=== PATIENT | female | born 1995 | race Caucasian/White ===

== ENCOUNTER 2025-11-07 10:05 | Emergency (ER) | payer BC, SELFPAY ==
--- NOTE | ~2025-11-07 | XR_ITS ---
CLINICAL HISTORY: flu like symptoms 2 view chest Comparison: None Findings: No consolidation or pneumothorax/pleural effusion. Mild peribronchial wall thickening. Cardiomediastinal silhouette is normal. No mediastinal shift or tracheal deviation. Osseous structures intact. Impression: 1. Mild central bronchial wall thickening. 2. No airspace disease. This document has been electronically signed by: Reilly Jovel MD on 11/07/2025 11:28:50
[2025-11-07 10:10] VITALS: BP 131/76; PULSE 80; RESP 16; TEMP 36.8; O2SAT 98; BMI 35.8
--- OUTSIDE RECORDS SUMMARY | 2025-11-07 10:29 | XMS_ITS | Encounter Summary ---
Author Organization [facility] Address [address] [place] [address] Care Team Providers Care Termite Technician Name Role Phone Hoa Garcia MD Primary Care Provider Encounter Details Date Type Department Care Team (Late st Contact Info) Description 10/23/2021 Abstract [facility] [address] [phone] Hoa Garcia MD [address] [place] [phone] Social History Tobacco Use Types Packs/Day Years Used Date Smoking Tobacco: Never Smokeless Tobacco: Never Alcohol Use Standard Drinks/Week Comments Yes 0 (1 standard drink = 0.6 oz pur e alcohol) Rarely PHQ-2 Answer Date Recorded PHQ-2 Total Score 0 04/13/2021 Comments No Sex and Gender Information Value Date Recorded Sex Assigned at Female 07/11/2021 12:59 PM EDT Legal Sex Female 1:45 PM EDT Gender Identity Female 07/11/2021 12:59 PM EDT Sexual Orientation Straight 07/11/2021 12 :59 PM EDT documented as of this encounter Plan of Treatment Upcoming Encounters Date Type Department Care Team (Late st Contact Info) Description 12/17/2025 4:20 PM EST Office Visit [facility] Family [facility] [address] [place] [address] Hoa Garcia MD [address] [place] [address] documented as of this encounter Visit Diagnoses Not on filedocumented in this encounter Additional Health Concerns Infection Onset Date Last Indicated Resolved Time R/O COVID-19 01/01/2023 01/01/2023 01/01/2023 5:17 PM EST R/O Influenza 01/01/2023 01/01/2023 01/01/2023 5:1 7 PM EST COVID-19 01/01/2023 01/01/2023 01/11/2023 7:18 PM EST R/O Influenza 10/30/2024 10/30/2024 10/30/2024 9:5 3 PM EST R/O RSV 10/30/2024 10/30/2024 10/30/2024 9:53 PM EST R/O Respiratory Virus 10/30/2024 10/30/20242023 9:53 PM EST R/O COVID-19 10/30/2024 10/30/2024 10/30/2024 9:53 PM EST Assessment Noted Time PHQ-9 Depression Total Score: 0 04/13/20 9:30 AM EDT documented as of this encounter Care Teams Termite Technician Relationship Specialty Start Date End Date Hoa Garcia MD PCP - General 11/05/14 documented as of this encounter
--- OUTSIDE RECORDS SUMMARY | 2025-11-07 10:29 | XMS_ITS | Encounter Summary ---
Author Organization [facility] Address [address] [place] [address] Care Team Providers Care Acid Purifier Name Role Phone Hoa Garcia MD Primary Care Provider Encounter Details Date Type Department Care Team (Late st Contact Info) Description 09/28/2021 Scanned Document [facility] [address] [address] oHa Garcia MD [address] [place] [phone] Social History Tobacco Use Types Packs/Day [...] 12/17/2025 4:20 PM EST Office Visit [facility] [address] [place] [address] Hoa Garcia MD [address] [place] [address] documented as of this encounter Visit Diagnoses [...] documented as of this encounter Care Teams Acid Purifier Relationship Specialty Start Date End Date Hoa Garcia MD PCP - General 11/05/14 documented as of this encounter
--- OUTSIDE RECORDS SUMMARY | 2025-11-07 10:29 | XMS_ITS | Encounter Summary ---
Author Organization [facility] Address [address] [place] [address] Care Team Providers Care Fuel System Maintenance Worker Name Role Phone Hoa Garcia MD Primary Care Provider Encounter Details Date Type Department Care Team (Late st Contact Info) Description 03/16/2021 Scanned Document [facility] Internal Medicine [address] [phone] External, Provider Social History Tobacco Use Types Packs/Day Years Used Date Smoking Tobacco: Never Smokeless Tobacco: Never Alcohol Use Standard Drinks/Week Comments Yes 0 (1 standard drink = 0.6 oz pur e alcohol) Rarely PHQ-2 Answer Date Recorded PHQ-2 Score 0 05/23/2019 Comments No Sex and Gender Information Value [...] 12/17/2025 4:20 PM EST Office Visit [facility] [address] [place] [address] Hoa Garcia MD [address] [place] [address] documented as of this encounter Procedures Procedure Name Priority Date/Time Associated Diagnosis Comments HM PAP SMEAR Routine 01/13/2020 documented in this encounter Results * HM PAP SMEAR (01/13/2020) us Provider External HEALTH MAINTENANCE Final Resul t documented in this encounter Visit Diagnoses Not on filedocumented [...] Noted Time PHQ-9 Depression Total Score: 0 10/16/20 18 11:34 AM EST documented as of this encounter Care Teams Fuel System Maintenance Worker Relationship Specialty Start Date End Date Hoa Garcia MD PCP - General 11/05/14 documented as of this encounter
--- OUTSIDE RECORDS SUMMARY | 2025-11-07 10:29 | XMS_ITS | Encounter Summary ---
Author Organization [facility] Address [address] [place] [address] Care Team Providers Care Integrated Program Teacher Name Role Phone Hoa Garcia MD Primary Care Provider Reason for Visit * Reason Comments Medication Refill Encounter Details Date Type Department Care Team (Late st Contact Info) Description 03/22/2022 Refill [facility] [address] [phone] Hoa Garcia MD [address] [place] [phone] Medication Refill Social History Tobacco Use Types Packs/Day Years [...] 12/17/2025 4:20 PM EST Office Visit [facility] [address] [place] [address] Hoa Garcia MD [address] [place] [address] documented as of this encounter Visit Diagnoses Diagnosis Essential hypertension Unspecified essential hypertension documented in this encounter Additional Health Concerns Infection [...] Time PHQ-9 Depression Total Score: 0 04/13/20 21 9:30 AM EDT documented as of this encounter Care Teams Integrated Program Teacher Relationship Specialty Start Date End Date Hoa Garcia MD PCP - General 11/05/14 documented as of this encounter
--- OUTSIDE RECORDS SUMMARY | 2025-11-07 10:29 | XMS_ITS | Encounter Summary ---
Author Organization [facility] Address [address] [place] [address] Care Team Providers Care Door Repairman Name Role Phone Hoa Garcia MD Primary Care Provider Encounter Details Date Type Department Care Team (Late st Contact Info) Description 11/02/2021 Abstract [facility] [address] [phone] Hoa Garcia MD [address] [place] [phone] Social History Tobacco Use Types Packs/Day [...] PM EST Office Visit [facility] Family Medicine [facility] [address] [place] [address] Hoa Garcia MD [address] [place] [address] documented as of this encounter Visit Diagnoses [...] documented as of this encounter Care Teams Door Repairman Relationship Specialty Start Date End Date Hoa Garcia MD PCP - General 11/05/14 documented as of this encounter
--- OUTSIDE RECORDS SUMMARY | 2025-11-07 10:29 | XMS_ITS | Encounter Summary ---
Author Organization [facility] Address [address] [place] [address] Care Team Providers Care Warehouse Engineer Name Role Phone Hoa Garcia MD Primary Care Provider Encounter Details Date Type Department Care Team (Late st Contact Info) Description 01/26/2022 Abstract [facility] [address] [phone] Hoa Garcia MD [address] [place] [phone] Social History Tobacco Use Types Packs/Day [...] 12/17/2025 4:20 PM EST Office Visit [facility] [address] [place] [address] Hoa Garcia MD [address] [place] [address] documented as of this encounter Visit Diagnoses [...] documented as of this encounter Care Teams Warehouse Engineer Relationship Specialty Start Date End Date Hoa Garcia MD PCP - General 11/05/14 documented as of this encounter
--- OUTSIDE RECORDS SUMMARY | 2025-11-07 10:29 | XMS_ITS | Encounter Summary ---
Author Organization [facility] Address [address] [place] [address] Care Team Providers Care Cap Inspector Name Role Phone Hoa Garcia MD Primary Care Provider Encounter Details Date Type Department Care Team (Late st Contact Info) Description 11/02/2021 Abstract [facility] [address] [phone] Hoa Garcia MD [address] [place] [phone] Social History Tobacco Use Types Packs/Day [...] PM EST Office Visit [facility] [address] [place] [address] Hoa Garcia MD [address] [place] [address] documented as of this encounter Visit Diagnoses [...] documented as of this encounter Care Teams Cap Inspector Relationship Specialty Start Date End Date Hoa Garcia MD PCP - General 11/05/14 documented as of this encounter
--- OUTSIDE RECORDS SUMMARY | 2025-11-07 10:29 | XMS_ITS | Encounter Summary ---
Author Organization [facility] Address [address] [place] [address] Care Team Providers Care Professor Of Psychiatry Name Role Phone Hoa Garcia MD Primary Care Provider Encounter Details Date Type Department Care Team (Late st Contact Info) Description 07/18/2021 Scanned Document [facility] [address] [phone] External, Provider Social History Tobacco Use Types [...] EST Office Visit [facility] [address] [place] [address] Hoa Garcia MD [address] [place] [address] documented as of this encounter Procedures Procedure Name Priority Date/Time Associated Diagnosis Comments HM PAP SMEAR Routine 03/14/2021 HM PAP SMEAR Routine 03/08/2021 documented in this encounter Results * HM PAP SMEAR (03/14/2021) us Provider External HEALTH MAINTENANCE Final Resul t * HM PAP SMEAR (03/08/2021) us Provider External HEALTH MAINTENANCE Final Resul [...] documented as of this encounter Care Teams Professor Of Psychiatry Relationship Specialty Start Date End Date Hoa Garcia MD PCP - General 11/05/14 documented as of this encounter
--- OUTSIDE RECORDS SUMMARY | 2025-11-07 10:29 | XMS_ITS | Encounter Summary ---
Author Organization [facility] Address [address] [place] [address] Care Team Providers Care Commercial Drone Pilot Name Role Phone Hoa Garcia MD Primary Care Provider Encounter Details Date Type Department Care Team (Latest Contact Info) Description 09/08/2020 Transcribed Orders [facility] [address] [place] [address] Hoa Garcia MD [facility] [place] [address] Generalized anxiety disorder (Primary Dx) Social History Tobacco Use Types Packs/Day Years [...] Description 12/17/2025 4:20 PM EST [facility] [address] [place] [address] Hoa Garcia MD [address] [place] [phone] documented as of this encounter Results * SARS CoV-2 (COVID-19) RNA - [facility] (Patient Scheduled for Surgery/Procedure) (09/08/2020 2:24 PM EDT) SARS-CoV-2 RNA (COVID-19) Not Detected Not Detected 09/09/2020 11:59 AM EDT [facility] DEPARTMENT OF LABORATORY MEDICINE Comment: Negative results do not preclude COVID-19 and should not be the sole basis for patient management decisions. Clinical disease and risk factors should also be considered. This real-time RT-PCR assay was developed by [employer] and targets three regions of the SARS-CoV-2 genome: orf1ab, spike (S) gene, nucleocapsid (N) gene. It has been validated for clinical use by the [facility] Virology Laboratory. [employer] COVID-19 Combo Kit is for use only under Emergency Use Authorization (EUA). Testing is limited to laboratories certified under the Clinical Laboratory Improvement Amendments of 1988 (CLIA), 42 U.S.C. 263a, to perform high complexity tests. Note that falsely negative results can be due to poor sample quality, suboptimal sample type, low viral load, and viral genome variability. Fact Sheet for Healthcare Providers: https://www.fda.gov/media/539842/download Fact Sheet for Patients: https://www.fda.gov/media/384135/download Test performance has not been evaluated in asymptomatic patients. Test ordering and result interpretation is at the discretion of the ordering provider. Viral NASOPHARYNGEAL STRUCTURE / Unknown Collection / Unknown 09/08/2020 2:24 PM EDT 09/08/2020 2:24 PM EDT us Hoa Garcia MD MICROBIOLOGY - GENERAL ORDERABLES Final Result [facility] DEPARTMENT OF LABORATORY MEDICINE [address] [place] [address] documented in this encounter Visit Diagnoses Diagnosis Generalized anxiety disorder- Primary documented in this encounter Additional Health Concerns Infection Onset Date Last Indicated Resolved Time R/O COVID-19 09/08/2020 09/08/2020 09/18/2020 7:19 PM EST R/O COVID-19 09/19/2020 09/19/2020 09/20/2020 11:3 5 AM EST R/O COVID-19 01/04/2021 01/04/2021 01/14/2021 7:20 PM EST R/O COVID-19 01/01/2023 01/01/2023 01/01/2023 5:17 PM [...] documented as of this encounter Care Teams Commercial Drone Pilot Relationship Specialty Start Date End Date Hoa Garcia MD PCP - General 11/05/14 documented as of this encounter
--- OUTSIDE RECORDS SUMMARY | 2025-11-07 10:29 | XMS_ITS | Encounter Summary ---
Author Organization [facility] Address [address] [place] [address] Care Team Providers Care Mottler Machine Feeder Name Role Phone Hoa Garcia MD Primary Care Provider Encounter Details Date Type Department Care Team (Late st Contact Info) Description 05/06/2018 Scanned Document [facility] [address] [place] [address] [address] [place], [place] [phone] External, Provider Social History Tobacco Use Types Packs/Day Years Used Date Smoking Tobacco: Never Smokeless Tobacco: Never Alcohol Use Standard Drinks/Week Comments Yes 0 (1 standard drink = 0.6 oz pur e alcohol) Rarely Comments No Sex and Gender Information Value [...] 12/17/2025 4:20 PM EST Office Visit [facility] Family [facility] [address] [place], [place] [phone] Hoa Garcia MD [address] [place] [phone] documented as of this encounter Procedures Procedure Name Priority Date/Time Associated Diagnosis Comments LAB SCAN Routine 02/17/2018 documented in this encounter Results * Lab Scan (02/17/2018) Blood specimen (specimen) us Provider External LAB BLOOD ORDERABLES Final Res ult documented in this encounter Visit Diagnoses Not [...] Noted Time PHQ-9 Depression Total Score: 0 07/30/20 17 3:52 PM EDT documented as of this encounter Care Teams Mottler Machine Feeder Relationship Specialty Start Date End Date Hoa Garcia MD PCP - General 11/05/14 documented as of this encounter
--- OUTSIDE RECORDS SUMMARY | 2025-11-07 10:29 | XMS_ITS | Encounter Summary ---
Author Organization [facility] Address [address] [place] [address] Care Team Providers Care Wrapper Operator Name Role Phone Hoa Garcia MD Primary Care Provider Encounter Details Date Type Department Care Team (Late st Contact Info) Description 07/28/2021 Abstract [facility] [address] [phone] Hoa Garcia MD [address] [place] [phone] Social History Tobacco Use Types Packs/Day [...] 4:20 PM EST Office Visit [facility] Family [facility] [address] [place] [address] Hoa Garcia MD [address] [place] [address] documented as of this encounter Visit Diagnoses [...] documented as of this encounter Care Teams Wrapper Operator Relationship Specialty Start Date End Date Hoa Garcia MD PCP - General 11/05/14 documented as of this encounter
--- OUTSIDE RECORDS SUMMARY | 2025-11-07 10:29 | XMS_ITS | Encounter Summary ---
Author Organization [facility] Address [address] [place] [address] Care Team Providers Care Town Clerk Name Role Phone Hoa Garcia MD Primary Care Provider Encounter Details Date Type Department Care Team (Late st Contact Info) Description 10/18/2021 Abstract [facility] [address] [phone] Hoa Garcia MD [address] [place] [phone] Social History Tobacco Use Types Packs/Day [...] 12/17/2025 4:20 PM EST Office Visit [facility] [address] [place] [address] Hoa Garcia MD [address] [place] [address] documented as of this encounter Visit Diagnoses [...] documented as of this encounter Care Teams Town Clerk Relationship Specialty Start Date End Date Hoa Garcia MD PCP - General 11/05/14 documented as of this encounter
--- OUTSIDE RECORDS SUMMARY | 2025-11-07 10:29 | XMS_ITS | Encounter Summary ---
Author Organization [facility] Address [address] [place] [address] Care Team Providers Care Dental Office Assistant Name Role Phone Hoa Garcia MD Primary Care Provider Encounter Details Date Type Department Care Team (Late st Contact Info) Description 11/01/2021 Abstract [facility] [address] [phone] Hoa Garcia MD [address] [place] [phone] Social History Tobacco Use Types Packs/Day [...] PM EST Office Visit [facility] Family Medicine [facility] [address] [place] [address] Hoa Garcia MD [address] [place] [address] documented as of this encounter Visit Diagnoses [...] documented as of this encounter Care Teams Dental Office Assistant Relationship Specialty Start Date End Date Hoa Garcia MD PCP - General 11/05/14 documented as of this encounter
--- OUTSIDE RECORDS SUMMARY | 2025-11-07 10:29 | XMS_ITS | Encounter Summary ---
Author Organization [facility] Address [address] [place] [address] Care Team Providers Care Transfer Agent Name Role Phone Hoa Garcia MD Primary Care Provider Encounter Details Date Type Department Care Team (Late st Contact Info) Description 10/03/2021 Abstract [facility] [address] [phone] Hoa Garcia MD [address] [place] [phone] Social History Tobacco Use Types Packs/Day [...] 4:20 PM EST Office Visit [facility] [address] [place] [address] Hoa Garcia MD [address] [place] [address] documented as of this encounter Visit Diagnoses [...] documented as of this encounter Care Teams Transfer Agent Relationship Specialty Start Date End Date Hoa Garcia MD PCP - General 11/05/14 documented as of this encounter
--- OUTSIDE RECORDS SUMMARY | 2025-11-07 10:30 | XMS_ITS | Encounter Summary ---
Author Organization [facility] Address [address] [place] [address] Care Team Providers Care Community Organizer Name Role Phone Hoa Garcia MD Primary Care Provider Seda Willingham MD Unavailable [phone] Encounter Details Date Type Department Care Team (Late st Contact Info) Description 11/09/2021 Scanned Document [facility] Bariatric Surgery [address] [place] [phone] Mark Panda MD [address] [place] [address] Social History Tobacco Use Types Packs/Day Years Used Date Smoking Tobacco: Never Smokeless Tobacco: Never Alcohol Use Standard Drinks/Week Comments Yes 0 (1 standard drink = 0.6 oz pur e alcohol) rarely Comments No Sex and Gender Information Value Date Recorded Sex Assigned at Female 09/04/2023 2:54 PM EDT Legal Sex Female 12:36 PM EDT Gender Identity Female 10/17/2021 7:55 AM EST Sexual Orientation Heterosexual (straight) 09/04 3:16 PM EDT COVID-19 Exposure Response Date Recorded In the last month, have you been in contact with someone who was confirmed or suspected to have Coronavirus / COVID-19? No / Unsure 11/01/2021 2:32 PM EST documented as of this encounter Plan of Treatment Not on file documented as of this encounter Visit Diagnoses Not on filedocumented in this encounter Care Teams Community Organizer Relationship Specialty Start Date End Date Hoa Garcia MD PCP - General 08/28/21 Seda Willingham MD [address] [place] [address] Gastroenterology 08/28/21 documented as of this encounter
--- OUTSIDE RECORDS SUMMARY | 2025-11-07 10:30 | XMS_ITS | Encounter Summary ---
Author Organization [facility] Address [address] [place] [address] Care Team Providers Care Event Mgr Name Role Phone Hoa Garcia MD Primary Care Provider Reason for Referral * Imaging (Routine) - Closed Specialty Diagnoses / Procedures Referred By Contac t Referred To Contact Diagnostic Radiology Procedures CT Head wo IV Contrast External, Provider Referral ID Status Reason Start Date Expiration Date Visits Re quested Visits Authorized [id number] Closed 07/24/2016 07/24/2017 1 1 Encounter Details Date Type Department Care Team (Late st Contact Info) Description 07/24/2016 Scanned Document [facility] [address] [place] [address] [address] [place], [place] [phone] External, Provider Social History Tobacco Use Types [...] EST Office Visit [facility] [address] [place] [address] Hoa Garcia MD [address] [place] [phone] documented as of this encounter Procedures Procedure Name Priority Date/Time Associated Diagnosis Comments CT HEAD WO IV CONTRAST Routine 07/08/2016 documented in this encounter Results * CT Head wo IV Contrast (07/08/2016) Anatomical Region Laterality Modality Head, Ortho Head Computed Tomogr aphy us Provider External IMG CT ORDERABLES Final Result documented in this encounter Visit Diagnoses Not [...] Noted Time PHQ-9 Depression Total Score: 0 06/04/20 16 2:06 PM EDT documented as of this encounter Care Teams Event Mgr Relationship Specialty Start Date End Date Hoa Garcia MD PCP - General 11/05/14 documented as of this encounter
--- OUTSIDE RECORDS SUMMARY | 2025-11-07 10:30 | XMS_ITS | Encounter Summary ---
Author Organization [facility] Address [address] [place] [address] Care Team Providers Care Furnace Stock Inspector Name Role Phone Hoa Garcia MD Primary Care Provider Seda Willingham MD Unavailable [phone] Encounter Details Date Type Department Care Team (Late st Contact Info) Description 01/15/2022 Scanned Document [facility] Bariatric Surgery [address] [place] [phone] Mark Panda MD [address] [place] [phone] Social History Tobacco Use Types Packs/Day [...] Orientation Heterosexual (straight) 09/04 3:16 PM EDT documented as of this encounter Plan of Treatment Not on file documented as of this encounter Visit Diagnoses Not on filedocumented in this encounter Care Teams Furnace Stock Inspector Relationship Specialty Start Date End Date Hoa Garcia MD PCP - General 08/28/21 Seda Willingham MD [address] [place] [address] Gastroenterology 08/28/21 documented as of this encounter
--- OUTSIDE RECORDS SUMMARY | 2025-11-07 10:30 | XMS_ITS | Encounter Summary ---
Author Organization [facility] Address [address] [place] [address] Care Team Providers Care Trapper Bird Name Role Phone Hoa Garcia MD Primary Care Provider Seda Willingham MD Unavailable Encounter Details Date Type Department Care Team (Late st Contact Info) Description 02/12/2022 Scanned Document [facility] Bariatric Surgery [address] [place] [phone] Mark Panda MD [address] [place] [address] Social History Tobacco Use Types Packs/Day [...] have Coronavirus / COVID-19? No / Unsure 02/09/2022 12:57 PM EDT documented as of this encounter Plan of Treatment Not on file documented as of this encounter Visit Diagnoses Not on filedocumented in this encounter Care Teams Trapper Bird Relationship Specialty Start Date End Date Hoa Garcia MD PCP - General 08/28/21 Seda Willingham MD [address] [place] [address] Gastroenterology 08/28/21 documented as of this encounter
--- OUTSIDE RECORDS SUMMARY | 2025-11-07 10:30 | XMS_ITS | Encounter Summary ---
Author Organization [facility] Address [address] [place] [address] Care Team Providers Care Carpet Layer Helper Name Role Phone Hoa Garcia MD Primary Care Provider Seda Willingham MD Unavailable [phone] Encounter Details Date Type Department Care Team (Late st Contact Info) Description 10/02/2021 Scanned Document [facility] Bariatric Surgery [address] [place] [phone] Mark Panda MD [address] [place] [address] Social History Tobacco Use Types Packs/Day Years Used Date Smoking Tobacco: Never Smokeless Tobacco: Never Alcohol Use Standard Drinks/Week Comments Yes 0 (1 standard drink = 0.6 oz pur e alcohol) rarely Comments Unknown Sex and Gender Information Value Date Recorded [...] have Coronavirus / COVID-19? No / Unsure 09/18/2021 3:41 PM EDT documented as of this encounter Plan of Treatment Not on file documented as of this encounter Visit Diagnoses Not on filedocumented in this encounter Care Teams Carpet Layer Helper Relationship Specialty Start Date End Date Hoa Garcia MD PCP - General 08/28/21 Seda Willingham MD [address] [place] [address] Gastroenterology 08/28/21 documented as of this encounter
--- OUTSIDE RECORDS SUMMARY | 2025-11-07 10:30 | XMS_ITS | Encounter Summary ---
Author Organization [facility] Address [address] [place] [address] Care Team Providers Care Fabrication Mig Welder Name Role Phone Hoa Garcia MD Primary Care Provider Seda Willingham MD Unavailable [phone] Encounter Details Date Type Department Care Team (Late st Contact Info) Description 02/09/2022 Scanned Document [facility] Bariatric Surgery [address] [place] [phone] Mark Panda MD [address] [place] [address] Social History Tobacco Use Types Packs/Day [...] on filedocumented in this encounter Care Teams Fabrication Mig Welder Relationship Specialty Start Date End Date Hoa Garcia MD PCP - General 08/28/21 Seda Willingham MD [address] [place] [address] Gastroenterology 08/28/21 documented as of this encounter
--- OUTSIDE RECORDS SUMMARY | 2025-11-07 10:30 | XMS_ITS | Encounter Summary ---
Author Organization [facility] Address [address] [place] [address] Care Team Providers Care Line Manager Name Role Phone Hoa Garcia MD Primary Care Provider Encounter Details Date Type Department Care Team (Late st Contact Info) Description 01/21/2017 Scanned Document [facility] [address] [place] [address] [address] [place], [place] [phone] External, Provider Social History Tobacco Use Types [...] 12/17/2025 4:20 PM EST Office Visit [facility] Family Medicine [facility] [address] [place], [place] [phone] Hoa Garcia MD [address] [place] [phone] documented as of this encounter Visit Diagnoses [...] documented as of this encounter Care Teams Line Manager Relationship Specialty Start Date End Date Hoa Garcia MD PCP - General 11/05/14 documented as of this encounter
--- OUTSIDE RECORDS SUMMARY | 2025-11-07 10:30 | XMS_ITS | Encounter Summary ---
Author Organization [facility] Address [address] [place] [address] Care Team Providers Care Patient Care Nursing Assistant Name Role Phone Hoa Garcia MD Primary Care Provider Encounter Details Date Type Department Care Team (Late st Contact Info) Description 01/02/2016 Scanned Document [facility] [address] [place] [address] [address] [place], [place] [phone] External, Provider Social History Tobacco Use Types Packs/Day Years Used Date Smoking Tobacco: Never Smokeless Tobacco: Never Alcohol Use Standard Drinks/Week Comments Yes 0 (1 standard drink = 0.6 oz pur e alcohol) Rarely Comments Unknown Sex and Gender Information Value [...] 12/17/2025 4:20 PM EST Office Visit [facility] Family Medicine [facility] [address] [place], [place] [phone] Hoa Garcia MD [address] [place] [address] documented as of this encounter Procedures Procedure Name Priority Date/Time Associated Diagnosis Comments LAB SCAN Routine 12/31/2015 documented in this encounter Results * Lab Scan (12/31/2015) Blood specimen (specimen) us Provider External LAB BLOOD ORDERABLES Final Res ult [facility] [place], [facility] documented in this encounter Visit Diagnoses Not [...] COVID-19 10/30/2024 10/30/2024 10/30/2024 9:53 PM EST documented as of this encounter Care Teams Patient Care Nursing Assistant Relationship Specialty Start Date End Date Hoa Garcia MD PCP - General 11/05/14 documented as of this encounter
--- OUTSIDE RECORDS SUMMARY | 2025-11-07 10:30 | XMS_ITS | Encounter Summary ---
Author Organization [facility] Address [address] [place] [address] Care Team Providers Care Optical Assistant Name Role Phone Hoa Garcia MD Primary Care Provider Seda Willingham MD Unavailable [phone] Encounter Details Date Type Department Care Team (Late st Contact Info) Description 10/27/2021 Scanned Document [facility] Bariatric Surgery [address] [place] [phone] Mark Panda MD [address] [place] [address] Social History Tobacco Use Types Packs/Day [...] have Coronavirus / COVID-19? No / Unsure 10/17/2021 4:04 PM EST documented as of this encounter Plan of Treatment Not on file documented as of this encounter Visit Diagnoses Not on filedocumented in this encounter Care Teams Optical Assistant Relationship Specialty Start Date End Date Hoa Garcia MD PCP - General 08/28/21 Seda Willingham MD [address] [place] [address] Gastroenterology 08/28/21 documented as of this encounter
--- OUTSIDE RECORDS SUMMARY | 2025-11-07 10:30 | XMS_ITS | Encounter Summary ---
Author Organization [facility] Address [address] [place] [address] Care Team Providers Care Pin Or Clip Fastener Name Role Phone Hoa Garcia MD Primary Care Provider Seda Willingham MD Unavailable [phone] Encounter Details Date Type Department Care Team (Late st Contact Info) Description 09/04/2023 Scanned Document [facility] Bariatric Surgery [place] [address] [place] [address] [address] [place] [address] Marcia Ellsworth MD [address] [place] [address] [address] [place], [place] [address] Social History Tobacco Use Types Packs/Day Years Used Date Smoking Tobacco: Never Smokeless Tobacco: Never Alcohol Use Standard Drinks/Week Comments Yes 0 (1 standard drink = 0.6 oz pur e alcohol) rarely Physical Activity Answer Date Recorded On average, how many days pe r week do you engage in moderate to strenuous exercise (like a brisk walk)? 7 09/04/2023 On average, how many minutes do you exercise per day at this level? 60 09/04/2023 Comments No Sex and Gender Information Value [...] on filedocumented in this encounter Care Teams Pin Or Clip Fastener Relationship Specialty Start Date End Date Hoa Garcia MD PCP - General 08/28/21 Seda Willingham MD [address] [place] [address] Gastroenterology 08/28/21 documented as of this encounter
--- OUTSIDE RECORDS SUMMARY | 2025-11-07 10:30 | XMS_ITS | Clinical Summary ---
Author Organization [address] Address [address] [place] [address] Care Team Providers Care Design Maintenance Engineer Name Role Phone Hoa Garcia MD Primary Care Provider Allergies Active Allergy Reactions Criticality Noted Date Comments Paroxetine Hcl 06/04/2016 [place] depressed on it. Given for KATY Medications fluticasone (FLONASE) 50 mcg/actuation nasal spray 1 spray by Nasal route daily. 16 g 12 8 Active cetirizine (ZYRTEC) 10 MG tablet Take 1 tablet (10 mg total) by mouth daily. 8 Active escitalopram oxalate (LEXAPRO) 20 mg tablet Take 1 tablet (20 mg total) by mouth every morning. Active albuterol sulfate (PROAIR HFA) 90 mcg/actuation HFA aerosol inhalerIndicatio ns:Seasonal allergic rhinitis due to pollen Inhale 2 puffs into the lungs every 4 (four) hours as needed (sob). 18 g 3 1 Active escitalopram oxalate (LEXAPRO) 10 mg tablet TAKE 1 TABLET BY MOUTH NIGHTLY PART OF A 30 MG DOSE 2 Active levonorgestreL (MIRENA) IUD Take 1 device by intrauterine route. 3 Active fluticasone propionate (FLONASE) 50 mcg/actuation nasal spray Use 1 spray in each nostril daily. 16 g 4 Active metoprolol succinate XL (TOPROL-XL) 25 mg 24 hr tabletIndication s:Essential hypertension Take 1 tablet (25 mg total) by mouth daily. Take with or immediately following a meal. 90 tablet 3 5 026 Active ferrous sulfate 325 mg (65 mg iron) delayed release tablet Take 1 tablet (325 mg total) by mouth. 5 Active montelukast (SINGULAIR) 10 mg tabletIndication s:Seasonal allergic rhinitis due to pollen Take 1 tablet (10 mg total) by mouth nightly. 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 07/08/2023 Essential hypertension 06/15/2016 Allergic rhinitis 06/04/2016 Overview (08/20/2016): Updated for 08/18 IMO Load Asthma, intermittent, with acute exacerbation Generalized anxiety disorder 12/30/2015 Resolved Problems Problem Noted Date Diagnosed Date Resolved Date Morbid obesity with body mas s index (BMI) of 40.0 to 49.9 (HC CODE) 10/16/2018 12/18/2022 Episodic tension-type headac he, not intractable 12/30/2015 06/04/2016 Immunizations Immunization Administration Dates Next Due COVID-19, MODERNA 12Y+, 0.5 mL 04/06/2021,2020 COVID-19, MODERNA Booster, 0.25mL 10/07/2021 DTaP 04/22/1998, 4,1993,08/04,1993 HPV9 08/05/2019,03/31/2019,01/29/2019 Hep B, adolescent or pediatric 1993,1992,1993 Influenza, injectable, MDCK, quad, preservative free 09/03/2023 Influenza, injectable, quadr ivalent, preservative free 10/16/2018 Influenza, split virus, triv alent, Preservative Free 07/21/2024,10/07/2021 Influenza, trivalent, inject able, contains preservative 10/07/2021 MMR 04/04/2000,08/01/1994 Meningococcal MCV4P - Menactra 08/29/2009 Oral Polio (OPV-Trivalent) N ot used after 02/17/2016 04/22/1998,11/14/1994,1993,06/07 Pneumococcal conjugate 20 va lent (PCV20) 07/10/2024 Pneumococcal polysaccharide PPSV23 10/16/2018 TB Screening (PPD/Quantiferon) 07/26/2021 Tdap 07/30/2017,02/24/2007 Varicella, live 02/23/2011,11/13/1995 Family History Medical History Relation Name Comments No Known Problems Father No Known Problems Mother Relation Name Status Comments Father Alive Mother Alive Social History Tobacco Use Types Packs/Day Years Used Date Smoking Tobacco: Never Smokeless Tobacco: Never Tobacco Cessation:Counseling Given: Not Answered Alcohol Use Standard Drinks/Week Comments Yes 0 (1 standard drink = 0.6 oz pur e alcohol) Rarely [facility] Utilities Answer Date Recorded In the past 12 months has th e electric, gas, oil, or water company threatened to shut off services in your home? No 07/09/2024 Overall Financial Resource Strain (CARDIA) Answe r Date Recorded How hard is it for you to pa y for the very basics like food, housing, medical care, and heating? Not very hard 07/07/2023 PHQ-2 Answer Date Recorded PHQ-2 Total Score 0 03/29/2025 Hunger Vital Sign Answer Date Recorded Within the past 12 months, y ou worried that your food would run out before you got the money to buy more. Never true 07/09/20 24 Within the past 12 months, t he food you bought just didn't last and you didn't have money to get more. Never true 07/09/2024 PRAPARE - Transportation Answer Date Re corded In the past 12 months, has l ack of transportation kept you from medical appointments or from getting medications? No 06/19 In the past 12 months, has l ack of transportation kept you from meetings, work, or from getting things needed for daily living? No 07/09/2024 Housing Stability Answer Date Recorded What is your living situation today? I have a st ana place to live 07/09/2024 Housing Stability Not on file 07/09/2024 Interpersonal Safety Answer Date Record ed Is there anyone in your life that is hurting or threatening you in anyway? Not on file 10/30/2024 Physical Indicators of Abuse No evidence of phys ical abuse 10/30/2024 Comments No Sex and Gender Information Value Date Recorded Sex Assigned at Female 07/11/2021 12:59 PM EDT Legal Sex Female 1:45 PM EDT Gender Identity Female 07/11/2021 12:59 PM EDT Sexual Orientation Straight 07/11/2021 12 :59 PM EDT Last Filed Vital Signs Vital Sign Reading Time Taken Comments Blood Pressure 110/80 03/29/2025 5:31 PM EDT Pulse 94 03/29/2025 5:31 PM EDT Temperature 36.8 C (98.2 F) 03/29/2025 5:31 PM EDT Respiratory Rate 16 10/30/2024 9:31 AM EST Oxygen Saturation 98% 03/29/2025 5:31 PM EDT Inhaled Oxygen Concentration - - Weight 86.2 kg (190 lb) 03/29/2025 5:31 PM EDT Height 160 cm (5' 3 ) 03/29/2025 5:31 PM EDT Body Mass Index 33.66 03/29/2025 5:31 PM EDT Plan of Treatment Upcoming Encounters Date Type Department Care Team (Late st Contact Info) Description 12/17/2025 4:20 PM EST Office Visit [facility] [address] [place] [address] [place] [address] [place] [phone] Health Maintenance Due Date Last Done Comments HIV screening 2006 Hepatitis C screening 2011 Influenza vaccine 06/18/2025 07/21/2024, , 10/07/2021, Additional history exists Covid-19 vaccine series (2024- season) 2025 07/21/2024, 09/03/2023, 10/07/2021, Additional history exists Diabetes screening 12/18/2025 12/18/2022, 1 , 06/27/2022, Additional history exists Tetanus adult (Td q 10,TDAP once) 07/30/2027 07/30/2017, 02/24/2007, 04/22/1998, Additional history exists Cervical cancer screening 06/27/20282022, 06/26/2022, 03/14/2021, Additional history exists RSV Immunization (1 - 1-dose 75+ series) 2068 Meningococcal Vaccine Completed 08/29/2009 Pneumococcal Vaccine (2 - 49 years) Completed 07/10/2024, 10/16/2018 Meningococcal B Vaccine Aged Out No l onger eligible based on patient's age to complete this topic Procedures Procedure Name Priority Date/Time Associated Diagnosis Comments HEMOGLOBIN A1C Routine 12/18/2022 9:48 AM EST Hypoglycemia HM PAP SMEAR Routine 03/14/2021 from Last 3 Months or Most Recently Relevant to Health Maintenance Results * (ABNORMAL) Hemoglobin A1c (12/18/2022 9:48 AM EST) [facility] Signature Hemoglobin A1c 5.8(H) 4.0 - 5.6 % 12/18/2022 11:59 AM EST [facility] Comment: Hemoglobin A1c values of 5.7-6.4 % identify individuals with an increased risk for future diabetes and to whom the term pre-diabetes may be applied. Hemoglobin A1c values greater than 6.4% on more than one occasion are diagnostic of diabetes. Lowering HbA1c to below 7% is considered to reduce microvascular and neuropathic complications of diabetes. This boronate affinity Hb A1c method provides accurate analytical results in the presence of nearly all Hb variants. Hb F higher than 10% of total Hb may yield falsely low results. Conditions that shorten red cell survival, such as the presence of unstable hemoglobins like Hb SS, Hb CC, and Hb SC, or other causes of hemolytic anemia may yield falsely low results. Iron deficiency anemia may yield falsely high results. Estimated Average Glucose mg/dL 120 mg/dL 12/18/2022 11:59 AM EST [facility] Comment: Estimated average glucose (eAG) is a calculated value designed to estimate the expected average blood glucose level throughout the day from a single measurement of glycated hemoglobin A1C (HbA1c) and follows the calculation proposed by the [employer] (Diabetes Care 31: 1-6, 2008). It may have less accuracy in children, women and patients with certain erythrocyte disorders. Blood Venipuncture / Unknown 12/18/2022 9:48 AM EST 12/18/2022 9:48 AM EST us Hoa Garcia MD LAB BLOOD ORDERABLES F inal Result [address] [phone] * PAP SMEAR (03/14/2021) us Provider External HEALTH MAINTENANCE Final Resul t from Last 3 Months or Most Recently Relevant to Health Maintenance Insurance [facility] BC[employer] WORKERS COMP GENERIC WORKERS COMP GENERIC Care Teams Design Maintenance Engineer Relationship Specialty Start Date End Date Hoa Garcia MD PCP - General 11/05/14
--- OUTSIDE RECORDS SUMMARY | 2025-11-07 10:30 | XMS_ITS | Encounter Summary ---
Author Organization [facility] Address [address] [place] [address] Care Team Providers Care Director Of Scientific Research Name Role Phone Hoa Garcia MD Primary Care Provider Encounter Details Date Type Department Care Team (Late st Contact Info) Description 05/06/2017 Scanned Document [facility] [address] [place] [address] [address] [place], [place] [address] External, Provider Social History Tobacco Use Types [...] N[facility] Family Medicine [facility] [address] [place], [place] [phone] Hoa Garcia MD [address] [place] [phone] documented as of this encounter Visit Diagnoses [...] documented as of this encounter Care Teams Director Of Scientific Research Relationship Specialty Start Date End Date Hoa Garcia MD PCP - General 11/05/14 documented as of this encounter
--- OUTSIDE RECORDS SUMMARY | 2025-11-07 10:30 | XMS_ITS | Encounter Summary ---
Author Organization [facility] Address [address] [place] [address] Care Team Providers Care Machine Binder Stripper Name Role Phone Hoa Garcia MD Primary Care Provider Seda Willingham MD Unavailable [phone] Encounter Details Date Type Department Care Team (Late st Contact Info) Description 10/02/2021 Scanned Document [facility] Bariatric Surgery [address] [place] [phone] Mark Panda MD [address] [place] [address] Social History Tobacco Use Types Packs/Day [...] on filedocumented in this encounter Care Teams Machine Binder Stripper Relationship Specialty Start Date End Date Hoa Garcia MD PCP - General 08/28/21 Seda Willingham MD [address] [place] [address] Gastroenterology 08/28/21 documented as of this encounter
--- OUTSIDE RECORDS SUMMARY | 2025-11-07 10:30 | XMS_ITS | Encounter Summary ---
Author Organization [facility] Address [address] [place] [address] Care Team Providers Care Cat Sitter Name Role Phone Hoa Garcia MD Primary Care Provider Seda Willingham MD Unavailable Encounter Details Date Type Department Care Team (Late st Contact Info) Description 03/08/2022 Scanned Document [facility] Bariatric Surgery [address] [place] [phone] Mark Panda MD [address] [place] [address] Social History Tobacco Use Types Packs/Day [...] Exposure Response Date Recorded In the last 10 days, have yo u been in contact with someone who was confirmed or suspected to have Coronavirus/COVID-19? No / Unsure 03/05/2022 7:16 AM EDT documented as of this encounter Plan of Treatment Not on file documented as of this encounter Visit Diagnoses Not on filedocumented in this encounter Care Teams Cat Sitter Relationship Specialty Start Date End Date Hoa Garcia MD PCP - General 08/28/21 Seda Willingham MD [address] [place] [address] Gastroenterology 08/28/21 documented as of this encounter
--- OUTSIDE RECORDS SUMMARY | 2025-11-07 10:30 | XMS_ITS | Encounter Summary ---
Author Organization [facility] Address [address] [place] [address] Care Team Providers Care Miner Pick Name Role Phone Hoa Garcia MD Primary Care Provider Seda Willingham MD Unavailable [phone] Encounter Details Date Type Department Care Team (Late st Contact Info) Description 12/07/2021 Scanned Document [facility] Bariatric Surgery [address] [place] [phone] Mark Panda MD [address] [place] [address] Social History Tobacco Use Types Packs/Day [...] on filedocumented in this encounter Care Teams Miner Pick Relationship Specialty Start Date End Date Hoa Garcia MD PCP - General 08/28/21 Seda Willingham MD [address] [place] [address] Gastroenterology 08/28/21 documented as of this encounter
--- OUTSIDE RECORDS SUMMARY | 2025-11-07 10:30 | XMS_ITS | Encounter Summary ---
Author Organization [facility] Address [address] [place] [address] Care Team Providers Care Workforce Manager Name Role Phone Hoa Garcia MD Primary Care Provider Encounter Details Date Type Department Care Team (Late st Contact Info) Description 05/01/2017 Scanned Document [facility] [address] [place] [address] [address] [place], [place] [address] External, Provider Social History Tobacco Use Types [...] PM EST Office Visit N[facility] Family Medicine [facility] [address] [place], [place] [phone] Hoa Garcia MD [address] [place] [phone] documented as of this encounter Visit Diagnoses [...] documented as of this encounter Care Teams Workforce Manager Relationship Specialty Start Date End Date Hoa Garcia MD PCP - General 11/05/14 documented as of this encounter
--- OUTSIDE RECORDS SUMMARY | 2025-11-07 10:30 | XMS_ITS | Encounter Summary ---
Author Organization [facility] Address [address] [place] [address] Care Team Providers Care Sound System Installer Name Role Phone Hoa Garcia MD Primary Care Provider Encounter Details Date Type Department Care Team (Late st Contact Info) Description 01/02/2016 Abstract [facility] [address] [place] [address] [address] [place], [place] [phone] Hoa Garcia MD [facility] [place] [address] Social History Tobacco Use Types Packs/Day [...] EST Office Visit [facility] [address] [place], [place] [address] Hoa Garcia MD [address] [place] [phone] documented as of this encounter Procedures Procedure Name Priority Date/Time Associated Diagnosis Comments LIPID PANEL Routine 12/31/2015 documented in this encounter Results * Lipid panel (12/31/2015) LDL Cholesterol 96 mg/dL Blood specimen (specimen) us Historical Provider LAB BLOOD ORDERABLES Final R esult documented in this encounter Visit Diagnoses Not [...] documented as of this encounter Care Teams Sound System Installer Relationship Specialty Start Date End Date Hoa Garcia MD PCP - General 11/05/14 documented as of this encounter
--- OUTSIDE RECORDS SUMMARY | 2025-11-07 10:30 | XMS_ITS | Encounter Summary ---
Author Organization [facility] Address [address] [place] [address] Care Team Providers Care General Claims Agent Name Role Phone Hoa Garcia MD Primary Care Provider Encounter Details Date Type Department Care Team (Late st Contact Info) Description 07/05/2016 Scanned Document [facility] [address] [place] [address] [address] [place], [place] [address] External, Provider Social History Tobacco Use Types [...] 12/17/2025 4:20 PM EST Office Visit [facility] Family Medicine [facility] [address] [place], [place] [phone] Hoa Garcia MD [address] [place] [phone] documented as of this encounter Visit Diagnoses [...] documented as of this encounter Care Teams General Claims Agent Relationship Specialty Start Date End Date Hoa Garcia MD PCP - General 11/05/14 documented as of this encounter
--- OUTSIDE RECORDS SUMMARY | 2025-11-07 10:30 | XMS_ITS | Encounter Summary ---
Author Organization [facility] ou and Home Health Address [address] [place] [address] Care Team Providers Care Cinder Pit Crane Operator Name Role Phone Hoa Garcia MD Primary Care Provider Encounter Details Date Type Department Care Team (Late st Contact Info) Description 11/05/2014 Abstract [facility] Medical [facility] [address] [facility] [address] [place] [address] Provider, historical . Social History Tobacco Use Types Packs/Day Years Used Date Smoking Tobacco: Never Assessed Comments Unknown Sex and Gender Information Value Date Recorded Sex Assigned at Female 07/11/2021 12:59 PM EDT Legal Sex Female 1:45 PM EDT Gender Identity Female 07/11/2021 12:59 PM EDT Sexual Orientation Straight 07/11/2021 12 :59 PM EDT documented as of this encounter Last Filed Vital Signs Vital Sign Reading Time Taken Comments Blood Pressure 130/96 09/03/2014 4:13 PM EDT Pulse - - Temperature - - Respiratory Rate - - Oxygen Saturation - - Inhaled Oxygen Concentration - - Weight 83 kg (183 lb) 09/03/2014 4:13 PM EDT Height 161.3 cm (5' 3.5 ) 09/03/2014 4:13 PM ED T Body Mass Index 31.91 09/03/2014 4:13 PM EDT documented in this encounter Plan of Treatment Upcoming Encounters Date Type Department Care Team (Late st Contact Info) Description 12/17/2025 4:20 PM EST Office Visit [facility] [address] [place] [address] Hoa Garcia MD [address] [place] [phone] documented as of this encounter Visit Diagnoses [...] documented as of this encounter Care Teams Cinder Pit Crane Operator Relationship Specialty Start Date End Date Hoa Garcia MD PCP - General 11/05/14 documented as of this encounter
--- OUTSIDE RECORDS SUMMARY | 2025-11-07 10:30 | XMS_ITS | Clinical Summary ---
Author Organization [facility] Address [address] [place] [address] Care Team Providers Care Conference Services Director Name Role Phone Hoa Garcia MD Primary Care Provider Seda Willingham MD Unavailable [phone] Allergies Active Allergy Reactions Criticality Noted Date Comments Paroxetine Unknown/Patient and Family Unable to Define Medium 06/04/2016 [place] depressed on it. Given for KATY Medications escitalopram (LEXAPRO) 20 MG tablet Take 1 tablet (20 mg total) by mouth daily. Active albuterol (PROVENTIL HFA; VENTOLIN HFA) 108 (90 Base) MCG/ACT inhaler Inhale 2 puffs every 4 (four) hours as needed. 1 Active acetaminophen (TYLENOL) 160 mg/5 mL solutionIndicat ions:Morbid obesity with body mass index (BMI) of 40.0 to 49.9 ([facility]) Take 20.3125 mL (650 mg total) by mouth 4 times daily (every 6 hours) as needed for mild pain or fever. 120 mL 2 Active escitalopram (LEXAPRO) 10 MG tablet escitalopram 10 mg tablet Active metoPROLOL SUCCINATE (TOPROL-XL) 25 MG 24 hr tablet metoprolol succinate ER 25 mg tablet,extended release 24 hr TAKE 1 TABLET BY MOUTH DAILY. TAKE WITH OR IMMEDIATELY FOLLOWING A MEAL. 2 Active norethindrone (MICRONOR) 0.35 MG tablet Take 1 tablet (0.35 mg total) by mouth. Active levonorgestrel (MIRENA) 20 mcg/24hr IUD 1 Intra Uterine Device by Intrauterine route once. Active methocarbamol (ROBAXIN) 500 MG tabletIndicatio ns:Incisional pain Take 1 tablet (500 mg total) by mouth 3 (three) times a day as needed for muscle spasms. 30 tablet 4 Active ferrous sulfate 325 (65 FE) MG EC tabletIndicatio ns:Low ferritin Take 1 tablet (325 mg total) by mouth daily. Take 2 hours before or 4 hours after acid reducers. 90 tablet 1 5 Active Active Problems Problem Noted Date Diagnosed Date Class 1 obesity 02/27/2023 S/P gastric bypass 02/27/2023 Morbid obesity 03/05/2022 Gastritis determined by biopsy 01/26/2022 Assessment & Plan (01/26/2022 10:05 AM EST): The patient will continue pantoprazole for now. She is scheduled for gastric bypass on February 27, 2022. In the absence of symptoms, there is no need to continue it afterwards. I counseled her to minimize NSAID use. Gastroenteritis 01/26/2022 Assessment & Plan (01/26/2022 10:05 AM EST): I encouraged the patient to make sure she stays well-hydrated. She will continue adhering to a BRAT diet. If her symptoms persist or get worse, she will call us and we can order stool studies. Morbid obesity with body mass index (BMI) of 40. 0 to 49.9 10/16/2018 Assessment & Plan (01/26/2022 10:06 AM EST): As noted, the patient is scheduled for gastric bypass surgery on February 27, 2022. Assessment & Plan (10/31/2021 5:24 PM EST): As outlined above, the patient is planning to have gastric bypass surgery. She is in need of an endoscopy to rule out underlying esophagitis, gastritis, masses, etc. We have scheduled an endoscopy. The benefits and risks were discussed. Covid precautions were explained. Anxiety 07/04/2016 Essential hypertension 06/15/2016 Allergic rhinitis 06/04/2016 Overview (10/26/2021): Updated for 08/18 IMO Load Asthma, intermittent, with acute exacerbation Generalized anxiety disorder 12/30/2015 Pre-operative cardiovascular examination 014 Syncope and collapse 09/03/2014 Immunizations Immunization Administration Dates Next Due Covid-19 mRNA Primary Series Vaccine - Moderna 0.5 mL Full Dose 10/07/2021,04/06/2021,03/09/2021 DTaP 04/22/1998, 4,1993,08/04,1993 HPV Nonavalent 08/05/2019,03/31/2019,01/29/2019 Hep B, Adolescent or Pediatric 1993,1992,1993 Influenza Inactivated/Split Preservative Free IM 10/07/2021 Influenza, Quadrivalent (FLU ARIX, AFLURIA, FLULAVAL, FLUZONE) Preservative Free IM 10/16/2018 MMR 04/04/2000,08/01/1994 Meningococcal MCV4P (Menactra) 08/29/2009 OPV 04/22/1998, 4,1993,06/07 PPD Test 07/26/2021 Pneumococcal Polysaccharide 23-Valent 10/16/2018 Tdap 07/30/2017,02/24/2007 Varicella 02/23/2011,11/13/1995 Family History Medical History Relation Name Comments Diabetes Father Brian Stroke Maternal Grandfather Enrico Heart disease Maternal Grandmother Concha Heart disease Maternal Uncle Duane Heart attack Mother Graciela Heart disease Mother Graciela Colon cancer Neg Hx Colon polyps Neg Hx Relation Name Status Comments Father Brian Alive Maternal Grandfather Enrico Alive Maternal Grandmother Concha Maternal Uncle Duane Mother Graciela Alive Social History Tobacco Use Types Packs/Day Years Used Date Smoking Tobacco: Never Smokeless Tobacco: Never Tobacco Cessation:Counseling Given: Not Answered Alcohol Use Standard Drinks/Week Comments Yes 0 (1 standard drink = 0.6 oz pur e alcohol) rarely [facility] ional [facility] - Occupational Stress Questionnaire Answer Date Recorded Do you feel stress - tense, restless, nervous, or anxious, or unable to sleep at night because your mind is troubled all the time - these days? Not at all 02/02/2025 Physical Activity Answer Date Recorded On average, how many days pe r week do you engage in moderate to strenuous exercise (like a brisk walk)? 4 days 02/02/2025 On average, how many minutes do you exercise per day at this level? 40 min 02/02/2025 Comments No Sex and Gender Information Value Date Recorded Sex Assigned at Female 09/04/2023 2:54 PM EDT Legal Sex Female 12:36 PM EDT Gender Identity Female 10/17/2021 7:55 AM EST Sexual Orientation Heterosexual (straight) 09/04 3:16 PM EDT Last Filed Vital Signs Vital Sign Reading Time Taken Comments Blood Pressure 106/78 02/02/2025 3:52 PM EDT Pulse 79 02/02/2025 3:52 PM EDT Temperature 36.7 C (98.1 F) 09/30/2024 1:24 PM EST Respiratory Rate 16 09/30/2024 1:24 PM EST Oxygen Saturation 99% 02/02/2025 3:52 PM EDT Inhaled Oxygen Concentration - - Weight 84.4 kg (186 lb) 02/02/2025 3:52 PM EDT Height 160 cm (5' 3 ) 02/02/2025 3:52 PM EDT Body Mass Index 32.95 02/02/2025 3:52 PM EDT Plan of Treatment Health Maintenance Due Date Last Done Comments Pneumococcal Vaccine: Pediat mohit (0-5 Years) and At-Risk Patients (6 to 49 Years) (2 of 2 - PCV) 10/16/2019 10/16/2018 Influenza Vaccine 06/18/2025 07/21/2024, , 10/07/2021, Additional history exists COVID-19 Vaccine ( - 2024-2 6 season) 2025 07/21/2024, 09/03/2023, 10/07/2021, Additional history exists Pap Smear (Ages 21-65) 06/27/2026 , 06/26/2022, 03/14/2021 DTaP/Tdap/Td Vaccines (8 - T d or Tdap) 07/30/2027 07/30/2017, 02/24/2007, 04/22/1998, Additional history exists Hepatitis B Vaccines Completed 1993, 1993, 1993 HPV Vaccines Completed 08/05/2019, 03/18, 01/29/2019 HIV Screening Completed 04/01/2024 Hepatitis C Virus Screening Completed 04/01/2024 Procedures Procedure Name Priority Date/Time Associated Diagnosis Comments HIV 1/2 AG/AB CMIA REFLEX TO CONFIRMATION Routine 04/01/2024 10:39 AM EDT HEPATITIS C VIRUS (HCV) ANTIBODY Routine 04/01/2024 10:39 AM EDT THINPREP PAP(CABLE TV INSTALLER)GC/CT HPV SCR RFX HPV 16,18/45 Routine 06/27/2023 2:39 PM EDT from Last 3 Months or Most Recently Relevant to Health Maintenance Results * HIV 1/2 Ag/Ab CMIA Reflex to Confirmation (04/01/2024 10:39 AM EDT) HIV Ag/Ab, 4th Gen Non-Reacti ve Non-Reacti ve [facility] Comment: Results show no evidence of infection by HIV 1/2. If clinically indicated, repeat CMIA or test by nucleic acid amplification. 04/01/2024 10:3 9 AM EDT 04/01/2024 10:55 PM EDT Narrative [facility] - 04/02/2024 10:53 AM EDT FASTING:NO us Jg Pandya MD LAB BLOOD ORDERABLES Final Resul t [facility] [address] [place], [place] * HEPATITIS C VIRUS (HCV) ANTIBODY (04/01/2024 10:39 AM EDT) Hepatitis C Antibody 0.11 Non-Reacti ve Non-Reacti ve [facility] 04/01/2024 10:3 9 AM EDT 04/01/2024 10:55 PM EDT Narrative [facility] CT [facility] - 04/02/2024 11:01 AM EDT FASTING:NO Jg Pandya MD LAB BLOOD ORDERABLES Final Resul t Performing Organization Address [facility] Co de Phone Number [facility] [address] [place], [place] * ThinPrep Pap(Superintendent Oil Field Drilling)GC/CT HPV Scr Rfx HPV 16,18/45 (06/27/2023 2:39 PM EDT) Report Report [facility] CT [facility] Comment: Final Gynecological Cytology Report ThinPrep Pap Test, GC/CT HPV Screen, Reflex HPV Genotype SPECIMEN ADEQUACY: SATISFACTORY FOR EVALUATION; ENDOCERVICAL/TRANSFORMATION ZONE COMPONENT ABSENT/INSUFFICIENT . INTERPRETATION: NEGATIVE FOR INTRAEPITHELIAL LESION OR MALIGNANCY. Electronically Signed: Trevor Jurado, [place] (ASCP) CLINICAL INFORMATION: LMP: NG Clinical History: NG Biopsy Date: NG Specimen Source: Cervix, Endocervix Previous Pap Date: NG HPV RESULTS: HPV mRNA E6/E7 [id number] Approved: 06/28/23 Negative REF RANGE: Negative CPT Codes: 60035 ICD Codes: Z01.411, Z01.419 06/27/2023 2:3 9 PM EDT 06/28/2023 1:38 AM EDT Claudia Story CNM LAB AMB PATH/CYTO ORDERABLES Fin al Result [facility] [address] [place], [place] from Last 3 Months or Most Recently Relevant to Health Maintenance Insurance [facility] HMO [facility] Advance Directives * Full Code (Latest Code Status on File) Date Activated Date Inactivated Comments 03/05/2022 12:36 PM Care Teams Conference Services Director Relationship Specialty Start Date End Date Hoa Garcia MD PCP - General 08/28/21 Seda Willingham MD [address] [place] [address] Gastroenterology 08/28/21
--- OUTSIDE RECORDS SUMMARY | 2025-11-07 10:30 | XMS_ITS | Encounter Summary ---
Author Organization [facility] oup and Home Health Address [address] [place] [address] Care Team Providers Care Stave Machine Tender Name Role Phone Hoa Garcia MD Primary Care Provider Encounter Details Date Type Department Care Team (Late st Contact Info) Description 07/10/2024 Scanned Document [facility] [address] [place] [address] External, Provider Social History Tobacco Use Types Packs/Day Years Used Date Smoking Tobacco: Never Smokeless Tobacco: Never Alcohol Use Standard Drinks/Week Comments Yes 0 (1 standard drink = 0.6 oz pur e alcohol) Rarely [facility] Utilities Answer Date Recorded In the past 12 months has [employer], gas, oil, or water [employer] threatened to shut off services in your home? No 07/09/2024 Overall Financial Resource Strain (CARDIA) Answe r Date Recorded How hard is it for you to pa y for the very basics like food, housing, medical care, and heating? Not very hard 07/07/2023 PHQ-2 Answer Date Recorded PHQ-2 Total Score 0 02/24/2024 Hunger Vital Sign Answer Date Recorded Within [...] your living situation today? I have a [facility] place to live 07/09/2024 Housing Stability Not on file 07/09/2024 Comments No Sex and Gender Information Value [...] PM EST Office Visit [facility] Family Medicine [address] [id number] Hoa Garcia MD [address] [place] [phone] documented as of this encounter Procedures Procedure Name Priority Date/Time Associated Diagnosis Comments HIV 1/2 AG/AB, W/REFLEXES (Q) Routine 04/02/2024 5:01 PM EDT ZZZHEPATITIS C VIRUS ANTIBODY VERIFICATION (L) Routine 04/02/2024 5:01 PM EDT documented in this encounter Results * HIV 1/2 ag/ab, w/reflexes (Q) (04/02/2024 5:01 PM EDT) Blood us Provider External LAB BLOOD ORDERABLES Final Res ult * Hepatitis C virus antibody verfication (L) (04/02/2024 5:01 PM EDT) Blood us Provider External LAB BLOOD ORDERABLES Final Res ult documented in this encounter Visit Diagnoses Not on filedocumented in this encounter Additional Health Concerns Infection Onset Date Last Indicated Resolved Time R/O Influenza 10/30/2024 10/30/2024 10/30/2024 9:5 3 PM EST R/O RSV 10/30/2024 10/30/2024 10/30/2024 9:53 PM EST R/O Respiratory Virus 10/30/2024 10/30/20242023 9:53 PM EST R/O COVID-19 10/30/2024 10/30/2024 10/30/2024 9:53 PM EST Assessment Noted Time PHQ-9 Depression Total Score: 0 02/24/20 24 2:29 PM EDT documented as of this encounter Care Teams Stave Machine Tender Relationship Specialty Start Date End Date Hoa Garcia MD PCP - General 11/05/14 documented as of this encounter
--- OUTSIDE RECORDS SUMMARY | 2025-11-07 10:30 | XMS_ITS | Encounter Summary ---
Author Organization [facility] ou and Home Health Address [address] [place] [address] Care Team Providers Care Interior Assemblies Developer Prover Name Role Phone Hoa Garcia MD Primary Care Provider Encounter Details Date Type Department Care Team (Late st Contact Info) Description 08/13/2016 Scanned Document [facility] [address] [place] [address] [address] [place], [place] [address] External, Provider Social History Tobacco Use Types [...] PM EST Office Visit [facility] Family Medicine [facility] [address] [place], [place] [phone] Hoa Garcia MD [address] [place] [phone] documented as of this encounter Visit Diagnoses [...] documented as of this encounter Care Teams Interior Assemblies Developer Prover Relationship Specialty Start Date End Date Hoa Garcia MD PCP - General 11/05/14 documented as of this encounter
--- OUTSIDE RECORDS SUMMARY | 2025-11-07 10:30 | XMS_ITS | Encounter Summary ---
Author Organization [facility] Address [address] [place] [address] Care Team Providers Care Matrix Repairer Name Role Phone Hoa Garcia MD Primary Care Provider Seda Willingham MD Unavailable [phone] Encounter Details Date Type Department Care Team (Late st Contact Info) Description 10/02/2021 Scanned Document [facility] Bariatric Surgery [address] [place] [phone] Mark Panda MD [address] [place] [address] Social History Tobacco Use Types Packs/Day [...] on filedocumented in this encounter Care Teams Matrix Repairer Relationship Specialty Start Date End Date Hoa Garcia MD PCP - General 08/28/21 Seda Willingham MD [address] [place] [address] Gastroenterology 08/28/21 documented as of this encounter
--- OUTSIDE RECORDS SUMMARY | 2025-11-07 10:30 | XMS_ITS | Encounter Summary ---
Author Organization [facility] ou and Home Health Address [address] [place] [address] Care Team Providers Care Manager Content Name Role Phone Hoa Garcia MD Primary Care Provider Encounter Details Date Type Department Care Team (Late st Contact Info) Description 07/05/2022 Scanned Document [facility] [address] [phone] External, Provider Social History Tobacco Use Types [...] EST Office Visit [facility] [address] [place] [address] Hoa Garcia MD [address] [place] [address] documented as of this encounter Procedures Procedure Name Priority Date/Time Associated Diagnosis Comments LAB SCAN Routine 07/02/2022 documented in this encounter Results * Lab Scan (07/02/2022) us Provider External LAB BLOOD ORDERABLES Final [...] documented as of this encounter Care Teams Manager Content Relationship Specialty Start Date End Date Hoa Garcia MD PCP - General 11/05/14 documented as of this encounter
--- OUTSIDE RECORDS SUMMARY | 2025-11-07 10:30 | XMS_ITS | Encounter Summary ---
Author Organization [facility] ou and Home Health Address [address] [place] [address] Care Team Providers Care Integration Lead Name Role Phone Hoa Garcia MD Primary Care Provider Encounter Details Date Type Department Care Team (Late st Contact Info) Description 07/04/2016 Scanned Document [facility] [address] [place] [address] [address] [place], [place] [phone] External, Provider Social History Tobacco Use Types [...] 12/17/2025 4:20 PM EST Office Visit [facility] Family Medicine [facility] [address] [place], [place] [phone] Hoa Garcia MD [address] [place] [phone] documented as of this encounter Visit Diagnoses [...] documented as of this encounter Care Teams Integration Lead Relationship Specialty Start Date End Date Hoa Garcia MD PCP - General 11/05/14 documented as of this encounter
--- OUTSIDE RECORDS SUMMARY | 2025-11-07 10:30 | XMS_ITS | Encounter Summary ---
Author Organization [facility] Address [address] [place] [address] Care Team Providers Care Marble Mechanic Helper Name Role Phone Hoa Garcia MD Primary Care Provider Seda Willingham MD Unavailable [phone] Encounter Details Date Type Department Care Team (Late st Contact Info) Description 10/13/2021 Documentation-Gabriella Kwong [facility] Bariatric Surgery [address] [place] [phone] Mark Panda MD [address] [place] [address] Social History Tobacco Use Types Packs/Day [...] on filedocumented in this encounter Care Teams Marble Mechanic Helper Relationship Specialty Start Date End Date Hoa Garcia MD PCP - General 08/28/21 Seda Willingham MD [address] [place] [address] Gastroenterology 08/28/21 documented as of this encounter
--- OUTSIDE RECORDS SUMMARY | 2025-11-07 10:30 | XMS_ITS | Encounter Summary ---
Author Organization [facility] ou and Home Health Address [address] [place] [address] Care Team Providers Care Gaming Director Name Role Phone Hoa Garcia MD Primary Care Provider Encounter Details Date Type Department Care Team (Late st Contact Info) Description 05/10/2017 Scanned Document [facility] [address] [place] [address] [address] [place], [place] [phone] External, Provider Social History Tobacco Use Types [...] 4:20 PM EST Office Visit [facility] Family Medicine [facility] [address] [place], [place] [phone] Hoa Garcia MD [address] [place] [phone] documented as of this encounter Procedures Procedure Name Priority Date/Time Associated Diagnosis Comments HM PAP SMEAR Routine 03/11/2017 LAB SCAN Routine 02/25/2017 documented in this encounter Results * HM PAP SMEAR (03/11/2017) us Provider External HEALTH MAINTENANCE Final Resul t * Lab Scan (02/25/2017) Blood specimen (specimen) us Provider External LAB [...] Noted Time PHQ-9 Depression Total Score: 0 0718/20 16 2:06 PM EDT documented as of this encounter Care Teams Gaming Director Relationship Specialty Start Date End Date Hoa Garcia MD PCP - General 11/05/14 documented as of this encounter
--- OUTSIDE RECORDS SUMMARY | 2025-11-07 10:30 | XMS_ITS | Encounter Summary ---
Author Organization [facility] Address [address] [place] [address] Care Team Providers Care Supervisor Toy Assembly Name Role Phone Hoa Garcia MD Primary Care Provider Seda Willingham MD Unavailable [phone] Encounter Details Date Type Department Care Team (Late st Contact Info) Description 03/01/2022 Scanned Document [facility] Bariatric Surgery [address] [place] [phone] Mark Panda MD [address] [place] [address] Social History Tobacco Use Types Packs/Day [...] or suspected to have Coronavirus / COVID-19? Yes 02/26/2022 10:47 AM EDT documented as of this encounter Plan of Treatment Not on file documented as of this encounter Visit Diagnoses Not on filedocumented in this encounter Care Teams Supervisor Toy Assembly Relationship Specialty Start Date End Date Hoa Garcia MD PCP - General 08/28/21 Seda Willingham MD [address] [place] [address] Gastroenterology 08/28/21 documented as of this encounter
--- OUTSIDE RECORDS SUMMARY | 2025-11-07 10:30 | XMS_ITS | Encounter Summary ---
Author Organization [facility] ou and Home Health Address [address] [place] [address] Care Team Providers Care Chemical Manager Name Role Phone Hoa Garcia MD Primary Care Provider Reason for Referral * Imaging (Routine) - Closed Specialty Diagnoses / Procedures Referred By Jessica goldsmith Referred To Contact Diagnostic Radiology Procedures MRI Brain w wo IV Contrast External, Provider Referral ID Status Reason Start Date Expiration Date Visits Re quested Visits Authorized [id number] Closed 08/23/2016 08/23/2017 1 1 Encounter Details Date Type Department Care Team (Late st Contact Info) Description 08/23/2016 Scanned Document [facility] [address] [place] [address] [place] [phone] External, Provider Social History Tobacco Use Types [...] [facility] [address] [place], [place] [phone] Hoa Garcia MD [address] [place] [phone] documented as of this encounter Procedures Procedure Name Priority Date/Time Associated Diagnosis Comments MRI BRAIN W WO IV CONTRAST Routine 08/20/2016 documented in this encounter Results * MRI Brain w wo IV Contrast (08/20/2016) Anatomical Region Laterality Modality Head, Ortho Head, RCC Brain Magn etic Resonance us Provider External IMG MRI ORDERABLES Final Resul t documented in this encounter [...] documented as of this encounter Care Teams Chemical Manager Relationship Specialty Start Date End Date Hoa Garcia MD PCP - General 11/05/14 documented as of this encounter
--- OUTSIDE RECORDS SUMMARY | 2025-11-07 10:30 | XMS_ITS | Encounter Summary ---
Author Organization [facility] ou and Home Health Address [address] [place] [address] Care Team Providers Care Licensing Worker Name Role Phone Hoa Gacria MD Primary Care Provider Encounter Details Date Type Department Care Team (Late st Contact Info) Description 05/31/2017 Scanned Document [facility] [address] [place] [address] [address] [place], [place] [phone] External, Provider Social History Tobacco Use Types [...] 12/17/2025 4:20 PM EST Office Visit [facility] Family Medicine [facility] [address] [place], [place] [phone] Hoa Garcia MD [address] [place] [phone] documented as of this encounter Visit Diagnoses [...] documented as of this encounter Care Teams Licensing Worker Relationship Specialty Start Date End Date Hoa Garcia MD PCP - General 11/05/14 documented as of this encounter
--- OUTSIDE RECORDS SUMMARY | 2025-11-07 10:30 | XMS_ITS | Encounter Summary ---
Author Organization [facility] Address [address] [place] [id number] Care Team Providers Care Manager Imaging Name Role Phone Hoa Garcia MD Primary Care Provider Seda Willingham MD Unavailable [phone] Encounter Details Date Type Department Care Team (Late st Contact Info) Description 03/13/[address] [facility] Bariatric Surgery [address] [place] [phone] Mark Panda MD [address] [place] [phone] Social History Tobacco Use Types Packs/Day [...] suspected to have Coronavirus/COVID-19? No / Unsure 03/14/2022 9:39 AM EDT documented as of this encounter Plan of Treatment Not on file documented as of this encounter Visit Diagnoses Not on filedocumented in this encounter Care Teams Manager Imaging Relationship Specialty Start Date End Date Hoa Garcia MD PCP - General 08/28/21 Seda Willingham MD [address] [place] [address] Gastroenterology 08/28/21 documented as of this encounter
--- OUTSIDE RECORDS SUMMARY | 2025-11-07 10:30 | XMS_ITS | Encounter Summary ---
Author Organization [facility] Address [address] [place] [id number] Care Team Providers Care Manager Assurance Name Role Phone Hoa Garcia MD Primary Care Provider Seda Willingham MD Unavailable [phone] Encounter Details Date Type Department Care Team (Late st Contact Info) Description 02/27/[address] [facility] Bariatric Surgery [address] [place] [phone] Mark Panda MD [address] [place] [phone] Social History Tobacco Use Types Packs/Day [...] filedocumented in this encounter Care Teams Manager Assurance Relationship Specialty Start Date End Date Hoa Garcia MD PCP - General 08/28/21 Seda Willingham MD [address] [place] [address] Gastroenterology 08/28/21 documented as of this encounter
--- OUTSIDE RECORDS SUMMARY | 2025-11-07 10:30 | XMS_ITS | Encounter Summary ---
Author Organization [facility] Address [address] [place] [address] Care Team Providers Care Stage Rigger Name Role Phone Hoa Garcia MD Primary Care Provider Encounter Details Date Type Department Care Team (Late st Contact Info) Description 08/15/2016 Scanned Document [facility] Sarah [address] [place] [address] [address] [place], [place] [address] External, Provider Social History Tobacco Use Types [...] PM EST Office Visit [facility] Family Medicine [facility] [address] [place], [place] [id number] Hoa Garcia MD [address] [place] [phone] documented as of this encounter Visit Diagnoses [...] documented as of this encounter Care Teams Stage Rigger Relationship Specialty Start Date End Date Hoa Garcia MD PCP - General 11/05/14 documented as of this encounter
[2025-11-07 10:47] LABS: MANUAL DIFF FLAG NO
[2025-11-07 10:50] LABS: Hematocrit 40.0 % (37.0-47.0); Hemoglobin 13.1 g/dl (12.0-16.0); Imm Gran Abs Auto 0.05 X10*3/uL (0.00-0.03); Imm Gran Pct Auto 0.4 % (0.0-0.4); Lymphocytes Absolute Auto 2.8 X10*3/uL (1.2-4.9); Mean Corpuscular HGB Conc 32.8 g/dl (31.0-35.0); Mean Corpuscular Hemoglobin 27.6 pg (27.0-33.0); Mean Corpuscular Volume 84.4 fL (80.0-98.0); NRBC Abs Auto 0.000 X10*3/uL (0.0-0.012); NRBC Pct Auto 0.0 /100WBC (0.0-0.2); Platelet Count 330 X10*3/uL (160-400); Red Blood Count 4.74 X10*6/uL (4.20-5.50); White Blood Count 11.5 X10*3/uL (4.8-10.8)
[2025-11-07 11:07] LABS: Resp Syncy Virus RNA Qual PCR NEGATIVE (Negative); SARS COV2 PCR INHOUSE NEGATIVE (Negative)
[2025-11-07 11:14] LABS: Alanine Aminotransferase 13 U/L (0-31); Albumin Level 4.4 g/dL (3.5-5.0); Alkaline Phosphatase 130 U/L (39-117); Anion Gap 14 (12-20); Aspartate Amino Transferase 19 U/L (5-31); Blood Urea Nitrogen 16 mg/dL (9-16); Calcium 9.3 mg/dL (8.4-10.2); Carbon Dioxide 26 mmol/L (22-29); Chloride 104 mmol/L (96-108); Creatinine Clr Calc Pharmacy 129.5; Estimated Glomerular Filt Rate > 60; Magnesium 2.0 mg/dL (1.6-2.6); Potassium 3.9 mmol/L (3.3-5.1); Sodium 140 mmol/L (135-145); Total Protein 7.6 g/dL (6.5-8.0)
--- NOTE | 2025-11-07 11:18 | PC.NURSE ---
Assumed care of patient at this time. Pt awake and alert. Presents with concerns of flu like symptoms over past week with increased pain to neck with decrease ROM x2 days. Pt with low grade temps. Able to turn head in all directions, decrease in ROM especially with flexion and extension. Denies numbness or tingling to arms/hands. Breathing equal and unlabored. Skin warm and well perfused. Vitals stable. Awaiting provider eval. PIV in place from previous RN. Labs pending.
--- NOTE | 2025-11-07 11:32 | ED.GENADULT ---
HPI - General Adult General Chief complaint: Neck Pain/Injury Stated complaint: UC sent here, cold symptoms w. neck pain Time Seen by Provider: 11/07/25 11:07 Source: patient and family Mode of arrival: ambulatory Limitations: no limitations History of Present Illness ED Provider: Elba Mares APRN HPI narrative: 30 yo female with history of anxiety, hypoglycemia, HTN, gastric bypass here with complaints of neck pain/stiffness 3 days. Patient reports 1 week ago she had 24 hours of fever max temp 100.5, body aches, fatigue, headache, congestion, cough and chills. All symptoms resolved with exception of some nasal congestion and occasional cough. 3 days ago she developed atraumatic neck pain described as stiffness. She has been applying topical pain creams and taking APAP with continued pain. Her last dose of APAP was yesterday. She reports over the weekend she did spend a lot of time in bed due to feeling unwell. She went to urgent care today and was referred in to the ER with concern for meningitis. Of note, she has no current headache, fever, chills, body aches, sore throat. She has no history of neck pain or neck injury. She denies any alcohol or drug use. No sick contact. No recent travel. Related Data Previous Rx's ?Medication ?Instructions ?Recorded diazepam 2 mg tablet (Valium) 2 mg PO TID PRN muscle spasm #12 11/07/25 tabs hydrocodone 5 mg-acetaminophen 325 1 tab PO Q6H PRN pain #12 tabs 11/07/25 mg tablet lidocaine 5 % topical patch 1 patch topical DAILY #15 ea 11/07/25 (Lidoderm) Allergies Allergy/AdvReac Type Severity Reaction Status Date / Time No Known Allergies Allergy Verified 11/07/25 10:11 Review of Systems Review of Systems: Yes all other systems are reviewed and are negative Constitutional: Constitutional: Reports no additional constitutional complaints, Denies body ache(s), Denies chills, Denies fever(s), Denies headache(s) and Denies weakness Eyes: Eyes: Reports no additional eye complaints and Denies change in vision ENT: Reports system reviewed and no additional complaints, except as documented, Denies dizziness, Denies headache(s), Reports nasal congestion, Denies nasal discharge and Reports neck pain Cardiovascular: Cardiovascular: Reports no additional cardiovascular complaints, Denies chest pain, Denies leg edema and Denies dyspnea Respiratory: Respiratory: Reports no additional respiratory complaints, Reports cough and Denies dyspnea Gastrointestinal: Gastrointestinal: Reports no additional gastrointestinal complaints, Denies abdominal pain, Denies diarrhea, Denies nausea and Denies vomiting Genitourinary: Genitourinary: Reports no additional female genitourinary complaints and Denies urinary incontinence Musculoskeletal: Musculoskeletal: Reports no additional musculoskeletal complaints, Denies back pain, Denies arthralgias, Denies joint swelling, Reports neck pain, Denies numbness and Denies tingling Integumentary/Breasts: Skin/Breast: Reports system reviewed and no additional complaints, except as docu and Denies rash Neurologic: Reports system reviewed and no additional complaints, except as documented, Denies Abnormal speech present, Denies dizziness, Denies headache(s), Denies numbness, Denies tingling and Denies weakness PMFSH Past Medical History Attestation statement: The following information was validated with the patient. Source: old records reviewed and nursing notes reviewed Physical Exam ED Vital Signs: Vital Signs - 24 hr 11/07/25 11:56 11/07/25 15:08 Temperature 98.2 F 98.2 F Pulse Rate 75 75 Respiratory Rate 16 16 Blood Pressure 121/84 121/84 Pulse Oximetry 99 99 Oxygen Delivery Method Room Air Room Air BMI result Body Mass Index 35.8 Const General: cooperative, healthy appearing, comfortable and no acute distress Orientation/consciousness: patient oriented x3 Limitations: no limitations HENMT Head: Yes normal to inspection Ears: hearing grossly normal bilaterally and TM's normal bilaterally General nose exam: Normal external nose present Face and sinus: Yes normal facial exam Mouth: Normal oral and palatal mucosa present Throat: Yes posterior oropharynx normal, Yes tonsils normal and Yes uvula midline Eyes General: appearance normal, both eyes and all related structures Pupils: Equal, round and reactive pupils present Neck Other: Negative Brudzinski, Negative Kernig. Pain with entire ROM of the cervical spine but patient is able to perform independently Pain on palpation to bilateral trapezius. No pain on palpation to posterior cervical spine Neck: Yes normal visual inspection, Yes full ROM, Yes no lymphadenopathy and Yes no meningeal signs Chest Chest palpation & inspection: normal inspection of the chest Resp Effort & Inspection: normal respiratory effort Auscultation: clear to auscultation bilaterally Cardio Rate: regular rate Rhythm: regular rhythm Peripheral pulses: Peripheral pulses 2+ throughout GI Inspection: Yes normal to inspection Palpation (GI): Soft to palpation and nontender Auscultation: normal bowel sounds Back/Spine/Pelvis Thoracic/Lumbar Spine: thoracic and lumbar spine normal to inspection Skin General skin exam: no rashes or lesions noted Neuro General: patient oriented x3, no meningeal signs, no focal motor deficits and normal sensation to monofilament Cranial nerves: Yes Equal, round and reactive pupils present Cognition (Neuro): normal cognition Speech: No Abnormal speech present Gait exam (Neuro): Normal gait present Motor exam (neuro): 5/5 motor strength present throughout Extrem General: Yes normal to inspection Course Course Course Narrative: 1411- Chest x-ray is unremarkable. Viral testing and strep testing is negative. Tick panel is pending. Blood work shows a mild leukocytosis of 11.5 and mildly elevated inflammatory markers but otherwise unremarkable. I spoke to the patient at the bedside. I doubt this is viral meningitis. This is more likely musculoskeletal pain. I did offer a lumbar puncture if she wanted to definitively rule out viral meningitis but she declined this. Therefore I will send her home with supportive measures and strict return precautions. Reviewed worrisome signs and symptoms of when to return to the emergency room. Comfortable plan for discharge home. Medications Administered Discontinued Medications Generic Name Dose Route Start Last Admin Trade Name Chloe PRN Reason Stop Dose Admin Hydrocodone Bitart/Acetaminophen 1 tab 11/07/25 13:59 11/07/25 14:04 Hydrocodone Bit/Acetam 5/325 Tablet PO 11/07/25 14:00 1 tab ONCE ONE Administration Diazepam 2.5 mg 11/07/25 11:47 11/07/25 11:52 Diazepam 10 Mg/2 Ml Cartridge IVPUSH 11/07/25 11:48 2.5 mg STAT STA Administration Diazepam 2.5 mg 11/07/25 12:42 11/07/25 12:45 Diazepam 10 Mg/2 Ml Cartridge IVPUSH 11/07/25 12:43 2.5 mg STAT STA Administration Sodium Chloride 1,000 mls @ 999 mls/hr 11/07/25 11:47 11/07/25 12:45 Ns IV 11/07/25 12:47 Infused .Q1H1M STA Infusion Acetaminophen 1,000 mg in 100 mls @ 400 mls/hr 11/07/25 11:47 11/07/25 12:11 Ofirmev IV 11/07/25 12:01 Infused ONCE ONE Infusion Medical Decision Making Medical Decision Making [facility] Narrative: 30 yo female with history of anxiety, hypoglycemia, HTN, gastric bypass here with complaints of neck pain/stiffness 3 days. Patient reports 1 week ago she had 24 hours of fever max temp 100.5, body aches, fatigue, headache, congestion, cough and chills. All symptoms resolved with exception of some nasal congestion and occasional cough. 3 days ago she developed atraumatic neck pain described as stiffness. She has been applying topical pain creams and taking APAP with continued pain. Her last dose of APAP was yesterday. She reports over the weekend she did spend a lot of time in bed due to feeling unwell. She went to urgent care today and was referred in to the ER with concern for meningitis. Of note, she has no current headache, fever, chills, body aches, sore throat. She has no history of neck pain or neck injury. She denies any alcohol or drug use. No sick contact. No recent travel. Negative Brudzinski, Negative Kernig. Pain with entire ROM of the cervical spine but patient is able to perform independently Pain on palpation to bilateral trapezius. No pain on palpation to posterior cervical spine I doubt bacterial meningitis based on length of symptoms and patients presentation. I doubt viral meningitis in the setting of no meningeal signs, afebrile and no reports of headache. Doubt RPA, [employer] with no reports of sore throat and normal exam This may be musculoskeletal I did add on strep testing and a tick panel due to recent viral illness. Will review viral testing, labs, CXR ordered from triage 14:20 Date: 11/07/25 Provider: Saul Alvarado MD HPI: 30 yo female with history of anxiety, hypoglycemia, HTN, gastric bypass here with complaints of neck pain/stiffness 3 days. Patient had a viral illness 1 week prior with fever, body aches, fatigue, headache, nasal congestion and cough. These symptoms resolved. Three days prior the patient developed neck stiffness which is worse with movement. She does not report any injuries. The stiffness got worse and she went to an urgent care clinic, given her recent viral illness, the urgent care provider was concerned that the patient might have meningitis and referred the patient to the emergency department. The patient has had no fever, chills, nausea, vomiting or headache in the last 24 hours. Exam: General: Awake, alert in no distress, does not appear ill Head: Normocephalic, atraumatic EENT: PERRL, sclera and conjunctiva are normal, mouth with no erythema or exudates Neck: The patient does have tenderness with palpation of the trapezius muscles of the neck, right greater than left, she also has spasm of these muscles. She has no nuchal rigidity and I am able to passively move her head from [id number] with only minimal discomfort. Neuro: Awake, alert, oriented, normal speech, cranial nerves 2-12 intact, moves all extremities symmetrically Psych: Pleasant, cooperative Medical decision making At this time I do not think that the patient has bacterial meningitis and I did discuss this with the patient and the patient's family. Also, I do not think that the patient has viral meningitis especially since she does not have headache or nuchal rigidity. I did discuss diagnostic lumbar puncture and the fact that given the minimal amount of pain that she is having, if she had a viral meningitis, the treatment would be symptomatic treatment with pain medications and antispasm medications. Using shared decision making, it was decided that a lumbar puncture would not be performed at this time. Patient was advised to return to the emergency room if her symptoms got worse or if she developed symptoms such as fever, chills, headache, nausea, vomiting, weakness, fatigue. I, Dr. Saul Alvarado, personally evaluated the patient. I reviewed the nurse practitioner Elba Mares's documentation and I was available to supervise the management of the patient. I agree with the treatment and plan.? Further, I agree with the controlled substance prescriptions) and other orders as written by the her, ? My note reflects my personal findings on my history and exam. Differential Diagnosis Differential Diagnoses: The differential diagnosis associated with the presentation includes see above Admission/Observation Consideration of admission/observation: Escalation of care including admission/observation considered Lab Data MDM Lab Attestation statement: I reviewed the patient's lab results. 11/07/25 10:40 11/07/25 10:40 Labs: Lab Results 11/07/25 11/07/25 11/07/25 Range/Units 10:26 10:40 11:31 WBC 11.5 H (4.8-10.8) X10*3/uL RBC 4.74 (4.20-5.50) X10*6/uL Hgb 13.1 (12.0-16.0) g/dl Hct 40.0 (37.0-47.0) % MCV 84.4 (80.0-98.0) fL MCH 27.6 (27.0-33.0) pg MCHC 32.8 (31.0-35.0) g/dl RDW 12.4 (11.0-16.0) % Plt Count 330 (160-400) X10*3/uL MPV 9.7 (9.4-12.3) fL Immature Gran % (Auto) 0.4 (0.0-0.4) % Neut % (Auto) 66.0 (45-73) % Lymph % (Auto) 24.4 (20-40) % Ellis % (Auto) 6.3 (2-11) % Eos % (Auto) 2.3 (0-4) % Baso % (Auto) 0.6 (0-2) % Lymph # (Auto) 2.8 (1.2-4.9) X10*3/uL Ellis # (Auto) 0.7 (0.1-1.2) X10*3/uL Eos # (Auto) 0.3 (0.0-0.4) X10*3/uL Baso # (Auto) 0.1 (0.0-0.2) X10*3/uL Abs Immat Gran (auto) 0.05 H (0.00-0.03) X10*3/uL Absolute Neuts (auto) 7.6 (2.0-8.3) x10*3/uL Absolute Nucleated RBC 0.000 (0.0-0.012) X10*3/uL Nucleated RBC % (auto) 0.0 (0.0-0.2) /100WBC ESR 39 H (1-20) MM/HR Sodium 140 (135-145) mmol/L Potassium 3.9 (3.3-5.1) mmol/L Chloride 104 (96-108) mmol/L Carbon Dioxide 26 (22-29) mmol/L Anion Gap 14 (12-20) BUN 16 (9-16) mg/dL Creatinine 0.67 (0.5-1.4) mg/dL Estim Creat Clear Calc 129.5 Estimated GFR > 60 Random Glucose 89 (60-115) mg/dL Calcium 9.3 (8.4-10.2) mg/dL Magnesium 2.0 (1.6-2.6) mg/dL Total Bilirubin 0.3 (0.0-1.0) mg/dL AST 19 (5-31) U/L ALT 13 (0-31) U/L Alkaline Phosphatase 130 H (39-117) U/L C-Reactive Protein 1.35 H (< or = 0.50) mg/dL Total Protein 7.6 (6.5-8.0) g/dL Albumin 4.4 (3.5-5.0) g/dL Influenza Type A (PCR) NEGATIVE (Negative) Influenza Type B (PCR) NEGATIVE (Negative) RSV RNA Qual (PCR) NEGATIVE (Negative) SARS-CoV-2 RNA (RT-PCR) NEGATIVE (Negative) S. pyogenes GrpA ARLYN Negative (Negative) Independent Interpretation I performed an independent interpretation of an: Plain X-Ray Interpretation: I independently viewed the x-ray and agree with the radiology report Radiology Impression Discussion of test interpretation with radiology: I have reviewed the radiologist's reading. Radiologist Impression: [place] [id number] XRay Report Signed Patient: Winifred Skinner MR#: [id number] : 1995 Acct:[id number] Age/Sex: 30 / F ADM Date: 11/07/25 Loc: .ED Attending Dr: Ordering Physician: Elba Mares NP Date of Service: 11/07/25 Procedure(s): XR chest 2V Accession Number(s): [id number] cc: Elba Mares NP; Hoa Garcia~ Reason for Exam: flu like symptoms CLINICAL HISTORY: flu like symptoms 2 view chest Comparison: None Findings: No consolidation or pneumothorax/pleural effusion. Mild peribronchial wall thickening. Cardiomediastinal silhouette is normal. No mediastinal shift or tracheal deviation. Osseous structures intact. Impression: 1. Mild central bronchial wall thickening. 2. No airspace disease. This document has been electronically signed by: Reilly Jovel MD on 11/07/2025 11:28:50 Independent Historian Clinical information obtained from an independent historian. History obtained from or confirmed by: Spouse Tests considered The following testing was considered but not selected: LP Discharge Plan Discharge Clinical Impression: Strain of neck muscle Patient Disposition: Home, Self-Care Instructions: Muscle Strain (ED), Narcotic Safety (ED) Additional Instructions: Your testing for flu, COVID, RSV and strep are negative Your x-ray shows no pneumonia Your blood work is reassuring We did send testing for all tick-borne illnesses and these results are pending. We will call you back if they are positive and if you need additional treatment. We do believe that this is likely musculoskeletal pain. The other consideration would be a viral meningitis although we believe this to be less likely and we offered a lumbar puncture and you declined this. Take the medications as prescribed There is 325mg of Tylenol in the Vicodin. You may also take 650mg of Tylenol every 6 hours. Do not exceed this dose if you are also taking Vicodin. Return to the emergency room for fever greater than 100.4, headache, vomiting, behavior change Prescriptions: New diazepam [Valium] 2 mg tablet 2 mg PO TID PRN (Reason: muscle spasm) Qty: 12 0RF hydrocodone-acetaminophen 5-325 mg tablet 1 tab PO Q6H PRN (Reason: pain) Qty: 12 0RF Rx Instructions: Partial Fill upon patient request. lidocaine [Lidoderm] 5 % adhesive patch,medicated 1 patch topical DAILY Qty: 15 0RF Rx Instructions: leave on most painful area for up to 12 hrs Referrals: Hoa Garcia [Other] Stand Alone Forms: Work/School Release Interventions: ED Discharge Assessment Last Done: 11/07/25 15:08 Discharge Date/Time: 11/07/25 15:08 Print Language: Occitan
[2025-11-07] MEDS: diazePAM 10 MG/2 ML CARTRIDGE 2.5 MG IVPUSH ×2 (11:52→12:45)
[2025-11-07 11:56] VITALS: BP 121/84; PULSE 75; RESP 16; TEMP 36.8; O2SAT 99
[2025-11-07 12:02] LABS: Strep A Nucleic Acid Negative (Negative)
[2025-11-07] MEDS: HYDROcodone Bit/Acetam 5/325 TABLET 1 TAB PO (14:04)
[2025-11-07 15:08] VITALS: BP 121/84; PULSE 75; RESP 16; TEMP 36.8; O2SAT 99
[2025-11-08 21:29] LABS: Lyme Abs Screen <0.90 index
[2025-11-08 21:37] LABS: A. Phagocytphilium DNA,RT-PCR NOT DETECTED (NOT DETECTED); Babesia Microti DNA, RT-PCR NOT DETECTED (NOT DETECTED); Borrelia Miyamotoi,DNA RT-PCR NOT DETECTED (NOT DETECTED); E.Chaffeensis DNA RT-PCR NOT DETECTED (NOT DETECTED); Lyme(Borrelia ssp)DNA RT-PCR NOT DETECTED (NOT DETECTED)
== END 2025-11-07 15:08 | disposition home or self-care (01) ==
PROVIDERS: Nurse Practitioner Family; Physician Assistant Medical; Emergency Provider Emergency Medicine Emergency Medical Services; PCP Family Medicine
DX: S16.1XXA Strain of muscle, fascia and tendon at neck level, initial encounter (principal); X58.XXXA Exposure to other specified factors, initial encounter; R05.9 Cough, unspecified; Z03.818 Encounter for observation for suspected exposure to other biological agents ruled out; Y93.9 Activity, unspecified; Y92.009 Unspecified place in unspecified non-institutional (private) residence as the place of occurrence of the external cause; Y99.9 Unspecified external cause status
CPT/HCPCS: 36415; 71046; 80053; 83735; 85025; 85652; 86140; 86617; 86618; 87468; 87469; 87478; 87484; 87637; 87651; 87798; 96361; 96365; 96375; 96376; 99284; J0131; J3360

== ENCOUNTER → 2025-11-07 11:11 | Outpatient (BNV) | payer BC, SELFPAY | PROVIDERS: Emergency Provider Emergency Medicine Emergency Medical Services; Visit Provider Radiology Diagnostic Radiology | DX: J98.09 Other diseases of bronchus, not elsewhere classified (principal) | CPT/HCPCS: 71046 ==